=== PATIENT | female | born 1970 | race Caucasian/White ===

== ENCOUNTER 2017-11-30 05:14 | Emergency (ER) | payer BC ==
[~2017-11-30] VITALS: Ht 162.6 cm; Wt 83.9 kg
--- NOTE | 2017-11-30 05:17 | NUR ---
Pt ambulates to ER with c/o chest pain that radiates to her left arm x 1 hr. Pt crying, stating she thinks she's having a heart attack and does not know if it is her anxiety. Pt also c/o shortness of breath. SAO2 100% RA. NSR on monitor. Pt is accompanied by her and daughter.
--- NOTE | 2017-11-30 05:22 | NUR ---
Dr. John BABIN MD at bedside for MSE.
[2017-11-30] MEDS ORDERED: ASPIRIN 81 MG TAB.CHEW ONE (05:28)
[2017-11-30] MEDS ORDERED: NITROGLYCERIN OINT 1 GM PACKET TP ONE ×2 (05:29→05:30)
[2017-11-30] MEDS ORDERED: ASPIRIN 81 MG TAB.CHEW PO ONE (05:30)
[2017-11-30] MEDS ORDERED: LORAZEPAM 2 MG/1 ML VIAL IV ONE (05:30)
--- NOTE | 2017-11-30 05:42 | NUR ---
Xray at bedside.
[2017-11-30] MEDS ORDERED: LORAZEPAM 2 MG/1 ML VIAL ONE (05:44)
[2017-11-30 05:45] LABS: BASOPHILS % (AUTO) 0.7 % (0.0-2.0); EOSINOPHILS # (AUTO) 0.1 K/uL (0.0-0.7); EOSINOPHILS % (AUTO) 2.4 % (0.0-7.0); HEMATOCRIT 39.5 % (31.2-41.9); HEMOGLOBIN 13.3 g/dL (10.9-14.3); LYMPHOCYTES # (AUTO) 1.8 K/uL (20.0-40.0); LYMPHOCYTES % (AUTO) 32.5 % (20.5-51.5); MEAN CORPUSCULAR HEMOGLOBIN 31.3 uug (24.7-32.8); MEAN CORPUSCULAR HGB CONC 34 g/dL (32.3-35.6); MEAN CORPUSCULAR VOLUME 92.7 fL (75.5-95.3); MONOCYTES # (AUTO) 0.4 K/uL (2.0-10.0); MONOCYTES % (AUTO) 6.7 % (0.0-11.0); NEUTROPHILS # (AUTO) 3.2 K/uL (1.8-8.9); NEUTROPHILS % (AUTO) 57.7 % (38.5-71.5); PLATELET COUNT (AUTO) 167 K/uL (179-408); RED BLOOD CELL COUNT(AUTO) 4.26 MIL/uL (3.63-4.92); WHITE BLOOD COUNT (AUTO) 5.5 K/uL (3.8-11.8)
--- NOTE | 2017-11-30 05:51 | NUR ---
Labs drawn. Chest xray done. Meds given. Pending results. Will continue to monitor.
[2017-11-30 06:11] LABS: BILIRUBIN,DIRECT 0.1 mg/dL (0.0-0.2); BILIRUBIN,TOTAL 0.5 mg/dL (0.2-1.0); POTASSIUM 4.2 mmol/L (3.5-5.1); TOTAL PROTEIN, SERUM 7.5 g/dL (6.4-8.2)
--- NOTE | 2017-11-30 07:08 | NUR ---
Report given to day shift RN.
--- NOTE | 2017-11-30 07:20 | NUR ---
Recieved Pt in bed awake a/o x4. Denies chest pain and SOB. C/O headache. MD notified.
[2017-11-30] MEDS ORDERED: ACETAMINOPHEN ES 500 MG TABLET ONE (07:25)
--- NOTE | 2017-11-30 08:34 | NUR ---
orthophoto tech/draftsman at the bedside for 2nd troponin drawing.
[2017-11-30 09:15] VITALS: BP 105/54
[2017-11-30] MEDS ORDERED: ACETAMINOPHEN ES 500 MG TABLET PO ONE (09:15)
--- NOTE | 2017-11-30 09:15 | NUR ---
IV removed. Catheter intact and site benign. Pressure and 4x4 gauze applied to site. No bleeding noted.
--- NOTE | 2017-11-30 09:29 | NUR ---
Patient discharged to home in stable conditon. Written and verbal after care instructions given. Patient verbalizes understanding of instructions.
== END 2017-11-30 09:36 | disposition home or self-care (01) ==
LOC: ER 05:17
DX: R07.89 Other chest pain (principal); F41.9 Anxiety disorder, unspecified
CPT/HCPCS: 36415; 71045; 80048; 80076; 83880; 84484 ×2; 85025; 93005; 96374; 99285; J2060; 70030-TC; A4663; A9150